=== PATIENT | female | born 1995 | race Caucasian/White ===

== ENCOUNTER → 2019-11-07 | Outpatient (CLI) | payer BC ==
--- NOTE | 2019-11-07 10:25 | Diagnostic Imaging Report ---
PROCEDURE: US OB SINGLE FETUS <14 WKS. TECHNIQUE: Multiple real-time grayscale images were obtained over the gravid uterus in various projections. INDICATION: dating. There is an intrauterine gestational sac containing a pole. measurements are consistent with approximately 9 weeks 6 days gestational age. heart rate was recorded at 179 bpm. No kwadwo-gestational sac hemorrhage is detected. Adnexal evaluation demonstrates left ovary to be unremarkable. Right ovary was not visualized due to bowel gas. There is no free fluid or adnexal mass. IMPRESSION: Single live IUP 9 weeks 6 days gestational age. Estimated date of confinement sonograph is 06/05/2020. Dictated by: Dictated on workstation # [id number]
== END ==
LOC: RAD 09:19
PROVIDERS: ATTEND Family Medicine
DX: Z36.89 Encounter for other specified antenatal screening (principal); Z3A.09 9 weeks gestation of pregnancy
CPT/HCPCS: 76801

== ENCOUNTER → 2020-01-11 | Outpatient (CLI) | payer BC ==
--- NOTE | 2020-01-11 17:10 | Diagnostic Imaging Report ---
INDICATION: Anatomic survey. TECHNIQUE: Multiple real-time grayscale images were obtained over the gravid uterus. COMPARISON: November 07, 2019. FINDINGS: A single live intrauterine gestation is identified in a cephalic presentation. The placenta is anteriorly located without evidence of placenta previa. Amniotic fluid is subjectively within normal limits. cardiac motion is documented at 147 bpm. biometrics are symmetric. They are consistent with estimated gestational age of 18 weeks and 6 days. Therefore, there is an estimated due date based upon this examination of June 07, 2020. Findings are consistent with clinical dating and there has been adequate interval growth since the prior examination. Intracranial contents and spine are unremarkable. The four-chamber heart, kidneys, urinary bladder, and three-vessel cord are unremarkable. Maternal ovaries were unable to be visualized secondary to the gravid uterus. Biometrical measurements are as follows: Biparietal 4.27 cm, age 19 weeks 0 days. Head circumference 15.76 cm, age 18 weeks 5 days. Abdominal circumference 12.37 cm, age 18 weeks 1 days. Femur length 2.97 cm, age 19 weeks 2 days. Sonographic estimate age: 18 weeks 6 days. Sonographic estimated date of delivery: 06/07/20. Estimated Weight: 247 gm (+/- 36 gm). LMP percentile: 17%. heart rate: 147 beats per minute. number: 1 of 1. IMPRESSION: Single live intrauterine gestation in a cephalic presentation with an estimated gestational age of 18 weeks and 6 days. Therefore, there is estimated due date based upon this examination of June 07, 2020. Findings are consistent with clinical dating and there has been adequate interval growth since the prior examination. No acute abnormality or anomaly identified on this exam. Dictated by: Dictated on workstation # [id number]
== END ==
LOC: RAD 14:13
PROVIDERS: ATTEND Family Medicine
DX: Z36.89 Encounter for other specified antenatal screening (principal); Z3A.18 18 weeks gestation of pregnancy
CPT/HCPCS: 76805

== ENCOUNTER 2020-06-04 18:56 | Inpatient (IN) | payer BC ==
--- NOTE | 2020-06-03 19:05 | NUR ---
SRINATH ARGUELLO presented to unit via from ED, accompanied by , INDUCTION. SRINATH GLASS weighed, gowned, voided, and to bed. EFHM and TOCO applied, VS taken. SRINATH GLASS oriented to bed controls, call light, TV, heat, and A/C controls.
[2020-06-04] VITALS (7 sets, daily range): BP systolic 120–132; BP diastolic 60–80
[~2020-06-04] VITALS: Ht 154.9 cm; Wt 91.2 kg
[2020-06-04] MEDS ORDERED: MINERAL OIL CONCENTRATE 99.9% 15 ML UDC TOP PRN (19:30)
[2020-06-04] MEDS ORDERED: MISOPROSTOL 100 MCG (CYTOTEC) TAB ONE (19:32)
[2020-06-04] MEDS ORDERED: D5 LR IV SOLUTION 1,000 ML IV ONE (19:33)
[2020-06-04] MEDS: D5 LR IV SOLUTION 1,000 ML IV SCH (19:45)
[2020-06-04] MEDS ORDERED: MISOPROSTOL 100 MCG (CYTOTEC) TAB PO ONE (19:56)
[2020-06-04 20:03] LABS: BASOPHILS % (AUTO) 0 % (0-10); EOSINOPHILS % (AUTO) 0 % (0-10); HEMATOCRIT 31 % (35-52); HEMOGLOBIN 10.5 G/DL (11.5-16.0); LYMPHOCYTES # (AUTO) 1.5 X 10^3 (1.0-4.0); LYMPHOCYTES % (AUTO) 19 % (12-44); MEAN CORPUSCULAR HEMOGLOBIN 26 PG (25-34); MEAN CORPUSCULAR HGB CONC 33 G/DL (32-36); MEAN CORPUSCULAR VOLUME 79 FL (80-99); MEAN PLATELET VOLUME 11.2 FL (7.4-10.4); MONOCYTES # (AUTO) 0.7 X 10^3 (0.0-1.0); MONOCYTES % (AUTO) 8 % (0-12); NEUTROPHILS # (AUTO) 5.9 X 10^3 (1.8-7.8); NEUTROPHILS % (AUTO) 73 % (42-75); PLATELET COUNT 330 10^3/uL (130-400); RED CELL DISTRIBUTION WIDTH 14.6 % (10.0-14.5)
[2020-06-04 20:14] LABS: BILIRUBIN,URINE NEGATIVE (NEGATIVE); CLARITY,URINE CLEAR; COLOR,URINE YELLOW; GLUCOSE, URINE (UA) NEGATIVE (NEGATIVE); KETONES,URINE NEGATIVE (NEGATIVE); LEUKOCYTE ESTERASE ,URINE NEGATIVE (NEGATIVE); NITRITE,URINE NEGATIVE (NEGATIVE); PROTEIN,URINE 1+ (NEGATIVE)
[2020-06-04 20:21] LABS: BACTERIA,URINE TRACE /HPF; WBC,URINE 0-2 /HPF
[2020-06-04] MEDS: LACTATED RINGERS 1,000 ML IV SCH (21:10)
[2020-06-04] MEDS ORDERED: CATHETER FLUSH 10 ML SYR IV SCH (22:00)
[2020-06-04] MEDS ORDERED: ZOLPIDEM 5 MG (AMBIEN) TAB PO PRN (22:15)
[2020-06-04] MEDS ORDERED: ACETAMINOPHEN 500 MG TAB (TYLENOL) PO PRN (22:15)
[2020-06-05] VITALS (67 sets, daily range): BP systolic 98–147; BP diastolic 33–102
[2020-06-05] MEDS: MISOPROSTOL 100 MCG (CYTOTEC) TAB PO SCH ×2 (00:15→04:36)
[2020-06-05] MEDS: D5 LR IV SOLUTION 1,000 ML IV SCH ×3 (03:00→18:28)
[2020-06-05] MEDS ORDERED: BUTORPHANOL INJ 2 MG/ML (STADOL) VIAL ONE (04:28)
[2020-06-05] MEDS ORDERED: BUTORPHANOL INJ 2 MG/ML (STADOL) VIAL IV ONE (04:36)
[2020-06-05] MEDS ORDERED: PREN-142 PO (05:01)
[2020-06-05] MEDS ORDERED: OMEP20TA33 PO (05:01)
--- NOTE | 2020-06-05 06:32 | History & Physical-OB ---
OB - Chief Complaint & HPI Date/Time Date of Admission: Date of Admission: Jun 04, 2020 at 18:56 Date seen by a Provider: Jun 05, 2020 Time Seen by a Provider: 06:30 Chief Complaint/History OB-Reason for Admission/Chief: Induction of Labor Hx : 1 Hx Para: 0 Expected Date of Delivery: Jun 05, 2020 Gestational Age in Weeks: 39 Gestational Age in Days: 6 Admission Nurse Assessment Rev: Yes History of Labs GBS negative Allergies and Home Medications Allergies Coded Allergies: No Known Drug Allergies (Unverified , 06/24/12) Home Medications Omeprazole Magnesium 20 Mg Tablet.dr, 20 MG PO DAILY, (Reported) Vit No.124/Iron/FA 1 Each Tablet, 1 EACH PO DAILY, (Reported) Patient Home Medication List Home Medication List Reviewed: Yes OB - History Hx of Present Care: Yes Ultrasounds: Normal mid trimester US Obstetrical Complications: None Medical Complications: None Delivery History Adverse Rxn to Tranfusion: No Patient Past Medical History No chronic medical problems Social History/Family History Recent Infectious Disease Expo: No Alcohol Use: Denies Use Recreational Drug Use: No Immunizations Hepatitis A: No Hepatitis B: No OB - Admission Exam Physical Exam Vitals: Vital Signs 06/04/20 06/05/20 19:45 03:15 Temp 37.0 Pulse 80 Resp 18 B/P (MAP) 132/65 (87) Pulse Ox 97 O2 Delivery Room Air HEENT: Moist Membranes Heart: Rhythm Normal Lungs: Clear Abdomen: Gravid Reflexes: Normal Cervical Dilatation: 1cm Effacement: 50% Station: -3 Membranes: Intact Heart Rate: 140's Accelerations: Accelerations Present Decelerations: No Decelerations Short Term Variability: Present Braid Maker Variability: Average (6-25) Contractions on Admission: None Calderón Scoring Tool (Modified) Dilation (cm): 1-2cm (1) Effacement (%): 31-51% (1) Descent/Station: -3 (0) Cervix Consistency: Medium(1) Cervix Position: Middle/Mid-Position (1) Calderón Score: 4 Labs Laboratory Tests Test 06/04/20 19:10 06/04/20 19:40 Range/Units Urine Color YELLOW Urine Clarity CLEAR Urine pH 7.0 5-9 Urine Specific [place] 1.020 1.016-1.022 Urine Protein 49 H 6-12 MG/DL Urine Glucose (UA) NEGATIVE NEGATIVE Urine Ketones NEGATIVE NEGATIVE Urine Nitrite NEGATIVE NEGATIVE Urine Bilirubin NEGATIVE NEGATIVE Urine Urobilinogen 0.2 < = 1.0 MG/DL Urine Leukocyte Esterase NEGATIVE NEGATIVE Urine RBC (Auto) NEGATIVE NEGATIVE Urine RBC NONE /HPF Urine WBC 0-2 /HPF Urine Squamous Epithelial Cells 5-10 /HPF Urine Crystals NONE /LPF Urine Bacteria TRACE /HPF Urine Casts NONE /LPF Urine Mucus SMALL H /LPF Urine Culture Indicated NO Urine Creatinine 230 H 30-125 MG/DL Urine Protein/Creatinine Ratio 0.21 White Blood Count 8.0 4.3-11.0 10^3/uL Red Blood Count 3.97 L 4.35-5.85 10^6/uL Hemoglobin 10.5 L 11.5-16.0 G/DL Hematocrit 31 L 35-52 % Mean Corpuscular Volume 79 L 80-99 FL Mean Corpuscular Hemoglobin 26 25-34 PG Mean Corpuscular Hemoglobin Concent 33 32-36 G/DL Red Cell Distribution Width 14.6 H 10.0-14.5 % Platelet Count 330 130-400 10^3/uL Mean Platelet Volume 11.2 H 7.4-10.4 FL Neutrophils (%) (Auto) 73 42-75 % Lymphocytes (%) (Auto) 19 12-44 % Monocytes (%) (Auto) 8 0-12 % Eosinophils (%) (Auto) 0 0-10 % Basophils (%) (Auto) 0 0-10 % Neutrophils # (Auto) 5.9 1.8-7.8 X 10^3 Lymphocytes # (Auto) 1.5 1.0-4.0 X 10^3 Monocytes # (Auto) 0.7 0.0-1.0 X 10^3 Eosinophils # (Auto) 0.0 0.0-0.3 10^3/uL Basophils # (Auto) 0.0 0.0-0.1 10^3/uL OB - Assessment/Plan/Diagnosis Assessment Assessment: induction of labor, other Admission Dx 1. IUP at 40 weeks Admission Status: Inpatient Order (span 2 midnights) Reason for Inpatient Admission: L&D Plan Plan: Induction Induction Method: per Misoprostol Protocol Other Plan -pitocin augmentation -epidural desired -urine protein/cr ratio checked due to proteinuria. DAMARIS REYES MD Jun 05, 2020 06:32
[2020-06-05] MEDS ORDERED: OXYTOCIN PRE-MIX DRIP 500 ML IV SCH ×2 (06:42→15:31)
[2020-06-05] MEDS: LACTATED RINGERS 1,000 ML IV SCH (06:55)
[2020-06-05] MEDS ORDERED: fentaNYL 2 mcg/ml BUPIVA 0.125 100 ML ONE (07:22)
--- NOTE | 2020-06-05 07:23 | NUR ---
anesthesia called and notified of epidural request
[2020-06-05] MEDS ORDERED: fentaNYL INJECTION 100 MCG/2 ML AMP ONE (07:39)
[2020-06-05] MEDS ORDERED: LIDOCAINE PF 2% 5 ML (XYLOCAINE) VIAL ONE ×2 (07:44→13:21)
[2020-06-05] MEDS ORDERED: BUPIVACAINE SPINAL 0.75% (SENSORCAINE) 2 ML AMP ONE ×2 (07:44→07:45)
[2020-06-05] MEDS ORDERED: BUPIVACAINE 0.5% 30 ML (SENSORCAINE) VIAL ONE ×2 (07:45→13:21)
[2020-06-05] MEDS ORDERED: BUPIVACAINE 0.25% 30 ML (SENSORCAINE) VIAL ONE (07:45)
[2020-06-05] MEDS ORDERED: LACTATED RINGERS 1,000 ML IV SCH (08:18)
[2020-06-05] MEDS ORDERED: ONDANSETRON 4 MG/2 ML (SDV) Z0FRAN IV PRN (08:30)
[2020-06-05] MEDS ORDERED: diphenhydrAMINE 50 MG/ML INJ (BENADRYL) IV PRN (08:30)
[2020-06-05] MEDS ORDERED: NALOXONE 0.4 MG/ML 1 ML (NARCAN) VIAL IV PRN (08:30)
[2020-06-05] MEDS ORDERED: EPIDURAL (fentaNYL 2 MCG/ML BUPIVA 0.125%)100 ML BAG EPI PRN (08:30)
[2020-06-05] MEDS ORDERED: TERBUTALINE INJ 1 MG/ML (BRETHINE) AMP ONE (12:46)
[2020-06-05] MEDS ORDERED: CITRIC ACID/SOB CIT (BICITRA) 30 ML UDC ONE (12:53)
[2020-06-05] MEDS ORDERED: FAMOTIDINE 20MG/2ML IV (PEPCID) ONE (12:53)
[2020-06-05] MEDS ORDERED: METOCLOPRAMIDE INJ 10 MG/2 ML (REGLAN) ONE (12:53)
[2020-06-05] MEDS ORDERED: OXYTOCIN PRE-MIX DRIP 0 ML IV ONE (13:11)
[2020-06-05] MEDS ORDERED: ceFAZolin INJECTION 1,000 MG ONE (13:16)
[2020-06-05] MEDS ORDERED: ceFAZolin INJECTION 2,000 MG ONE (13:46)
[2020-06-05] MEDS ORDERED: morphine INJ 10 MG/ML 1ML (SYR OR VIAL) IVP ONE (14:00)
--- NOTE | 2020-06-05 14:44 | NUR ---
Pt to [facility] room 307 via bed accompanied by PACU staff. Report rec'd bedside from Edwin Farmer RN. VS taken, assessment completed. IV pitocin to pump. SCD's on and activated. FFU/2, light rubra lochia noted, no clots expressed. Fresh ice water and ice chips provided per pt request. No s/s of distress noted. No further needs voiced
[2020-06-05] MEDS ORDERED: KETOROLAC 30 MG/ML VIAL ONE (15:41)
[2020-06-05] MEDS ORDERED: MEASLES,MUMPS,RUBELLA 1 EA INJ SC SCH (15:45)
[2020-06-05] MEDS ORDERED: TETANUS,DIPTH,PERTUSS P/F (BOOSTRIX) 0.5 ML VIAL IM SCH (15:45)
[2020-06-05] MEDS: KETOROLAC 30 MG/ML VIAL IV SCH ×2 (15:46→22:17)
--- NOTE | 2020-06-05 18:30 | NUR ---
assisted pt up to side of bed, pericare performed, pad and panty applied. pt ambulates self to bathroom, +void, pericare performed. pt assisted back to bed w/o incident.
--- NOTE | 2020-06-05 19:48 | NUR ---
INITIAL SHIFT ASSESSMENT DONE. VSS. PT DENIES ANY C/O'S AT THIS TIME. AT SIDE AND SLEEPING IN OPEN CRIB.
--- NOTE | 2020-06-05 20:40 | NUR ---
PT ASSISTED UP TO BATHROOM. VOIDING WITHOUT DIFFICULTY. PT DENIES ANY NEEDS AT THIS TIME.
--- NOTE | 2020-06-05 21:15 | NUR ---
IV TO SALINE LOCK. PT UP TO SHOWER AT THIS TIME PER REQUEST.
[2020-06-05] MEDS ORDERED: CATHETER FLUSH 10 ML SYR IV SCH (22:00)
--- NOTE | 2020-06-05 22:15 | NUR ---
PT RESTING OFF ET ON. SCHEDULED TORADOL ADMINISTERED WELL COLACE. PT DENIES ANY NEEDS.
[2020-06-05] MEDS: DOCUSATE SODIUM 100 MG (COLACE) CAP PO SCH (22:17)
[2020-06-05] MEDS: oxyCODONE/APAP 10/325MG (PERCOCET 10) TABLET PO PRN (23:30)
--- NOTE | 2020-06-05 23:30 | NUR ---
PT EXHAUSTED. ASLEEP ON COUCH. INFANT TO NSY SO PT MAY REST. PT DENIES ANY NEEDS AT THIS TIME.
[2020-06-06 02:10] VITALS: BP 138/80
--- NOTE | 2020-06-06 02:20 | NUR ---
PT UP TO BATHROOM AT THIS TIME. VOIDED LARGE AMT. LOCHIA LIGHT. PT PASSING FLATUS WELL.
--- NOTE | 2020-06-06 03:30 | NUR ---
PT SITTING UP IN BED AND HAS BEEN FEEDING INFANT. DENIES ANY NEEDS OR C/O'S.
[2020-06-06] MEDS: KETOROLAC 30 MG/ML VIAL IV SCH (04:17)
[2020-06-06 04:58] LABS: BASOPHILS % (AUTO) 0 % (0-10); EOSINOPHILS % (AUTO) 0 % (0-10); HEMATOCRIT 25 % (35-52); HEMOGLOBIN 8.1 G/DL (11.5-16.0); LYMPHOCYTES # (AUTO) 1.4 X 10^3 (1.0-4.0); LYMPHOCYTES % (AUTO) 13 % (12-44); MEAN CORPUSCULAR HEMOGLOBIN 26 PG (25-34); MEAN CORPUSCULAR HGB CONC 32 G/DL (32-36); MEAN CORPUSCULAR VOLUME 81 FL (80-99); MEAN PLATELET VOLUME 10.9 FL (7.4-10.4); MONOCYTES # (AUTO) 0.8 X 10^3 (0.0-1.0); MONOCYTES % (AUTO) 8 % (0-12); NEUTROPHILS # (AUTO) 8.3 X 10^3 (1.8-7.8); NEUTROPHILS % (AUTO) 79 % (42-75); PLATELET COUNT 257 10^3/uL (130-400); RED CELL DISTRIBUTION WIDTH 14.8 % (10.0-14.5); WHITE BLOOD COUNT 10.4 10^3/uL (4.3-11.0)
--- NOTE | 2020-06-06 05:05 | NUR ---
DIAPER CHANGE DEMONSTRATION GIVEN.
[2020-06-06 05:30] VITALS: BP 130/81
[2020-06-06] MEDS: oxyCODONE/APAP 10/325MG (PERCOCET 10) TABLET PO PRN ×2 (07:15→16:47)
--- NOTE | 2020-06-06 08:00 | NUR ---
A.M. ASSESSMENT COMPLETED. VSS. ENCOURAGED I.S. Q 2 HOURS W/A AND AMBULATION IN HALLWAY X4 TODAY. CARING FOR INFANT IN ROOM. S.O. AT BEDSIDE.
[2020-06-06 08:20] VITALS: BP 131/66
[2020-06-06] MEDS: DOCUSATE SODIUM 100 MG (COLACE) CAP PO SCH ×2 (08:57→19:53)
--- NOTE | 2020-06-06 09:50 | Progress Note ---
Standard Progress Note Progress Notes/Assess & Plan Date Seen by a Provider: Jun 06, 2020 Time Seen by a Provider: 09:49 Progress/Assessment & Plan This patient is without complaint. She is ambulating, voiding, tolerating oral intake well has good pain control. Vital Signs 06/05/20 06/06/20 14:20 05:30 Temp 36.9 Pulse 94 Resp 18 B/P (MAP) 130/81 (97) Pulse Ox 100 O2 Delivery Room Air O2 Flow Rate 2 Vital signs are stable. Patient is afebrile. The abdomen is benign. Fundus is firm below the umbilicus and nontender. The surgical incision is clean dry and intact. Extreme show no clubbing cyanosis. There is no Homans sign. There is some pretibial pitting edema that is normal. Assessment and plan postoperative day number 1 status post primary delivery doing well. Plan is routine convalescence care today and consider for discharge home tomorrow Final Diagnosis Primary delivery VERONICA ZEPEDA MD Jun 06, 2020 09:50
[2020-06-06] MEDS ORDERED: DCS100C PO (09:52)
[2020-06-06] MEDS ORDERED: IBUP-1780 PO (09:52)
[2020-06-06] MEDS ORDERED: OXYC1TAB12 PO (09:52)
--- NOTE | 2020-06-06 09:53 | Discharge Inst-Surgical ---
Discharge Inst-Surgical Depart Medication/Instructions New, Converted or Re-Newed RX: RX on Chart Consults/Follow Up Patient Instructions: As directed Orders & Referrals Follow Up Appt: RTC 1 week for incision check with Dr. Schmidt for incision check Call to make follow up appt. for patient in [address] Muir for exam. Wound Care: Remove david, apply benzoin and steri strips. Activity Per routine post instructions. Please call in RX to patient pharmacy. Diet as tolerated Patient may shower or tub bathe as desired. Continue home meds Activity Activity as Tolerated: No Diet Discharge Diet: No Restrictions VERONICA SCHMIDT MD Jun 06, 2020 09:53
[2020-06-06] MEDS ORDERED: IBUPROFEN 600 MG (MOTRIN) TAB PO ONE (09:58)
--- NOTE | 2020-06-06 10:00 | NUR ---
CONTINUES TO DO WELL. CARING FOR INFANT IN ROOM.
[2020-06-06] MEDS: IBUPROFEN 800 MG (MOTRIN) TAB PO SCH ×2 (10:11→18:07)
--- NOTE | 2020-06-06 13:00 | NUR ---
EATING STORK MEAL.
[2020-06-06 13:15] VITALS: BP 133/68
--- NOTE | 2020-06-06 13:19 | Anesthesia-Regional Post-Op ---
Regional Patient Condition Mental Status: Alert, Oriented x3 Circulation: Same as Pre-Op Headache: Absent Sensation: Full Recovery Motor Block: Absent Post Op Complications Complications None Follow Up Care/Instructions Patient Instructions None needed. Anesthesia/Patient Condition Patient is doing well, no complaints, stable vital signs, no apparent adverse anesthesia problems. EMILY THOMAS DO Jun 06, 2020 13:19
[2020-06-06] MEDS ORDERED: SIMETHICONE 80 MG (MYLICON) CHEW PO PRN (13:45)
--- NOTE | 2020-06-06 14:00 | NUR ---
PT HAS AMBULATED IN THE [facility] TODAY. MOVES WELL. PASSING FLATUS BUT C/O GAS PAIN.
--- NOTE | 2020-06-06 14:53 | OPERATIVE REPORT ---
DATE OF SERVICE: 06/05/2020 PREOPERATIVE DIAGNOSES: Term in labor with failure to progress and with nonreassuring heart rate pattern. POSTOPERATIVE DIAGNOSES: Term in labor with failure to progress and with nonreassuring heart rate pattern with likely placental abruption. OPERATIVE PROCEDURE: Primary low transverse delivery of a viable male infant with Apgars of 8 and 9 at 1 and 5 minutes respectively, weight of 6 pounds and 8 ounces. time of 13:11 and a cord pH that is pending. NETWORK SECURITY ADMINISTRATOR FOR DELIVERY: Dr. Muir. SPECIALIST EMPLOYEE LABOR RELATIONS FOR DELIVERY: Dr. Muir. OPERATIVE DESCRIPTION: With the patient in the supine position under satisfactory epidural analgesia, the patient was prepped and draped in the usual fashion for abdominal surgery. Osuna catheter was in the urinary bladder already that was left to dependent drainage. A Pfannenstiel incision was made through the skin with scalpel, the patient's abdomen entered in the usual manner. Bladder retractor placed in position. Clean scalpel used to make a 4 cm hysterotomy incision transversely across the lower uterine segment. That was extended bluntly, releasing a small amount of clear fluid. Mercado forceps were applied to facilitate delivery of a vigorous viable male infant. The had stats as noted above. The was bulb suctioned on delivery of the head and again on completion of delivery. The umbilical cord was doubly clamped and cut and the taken to the warmer by Dr. Muir, the community health education coordinator in attendance for delivery. Cord bloods were obtained. Placenta delivered fairly promptly spontaneously Vincent. There was a large amount of blood with some formed clot retroplacental, suspicious for some degree of placental abruption. The placenta was sent to pathology for permanent section. The uterus was exteriorized, interior wiped clean with wet laparotomy sponge. Uterine incision closed with running locked suture of 2-0 Vicryl. Hemostasis was complete. The uterus was returned to the abdominal cavity. All blood clot and debris removed from the abdominal cavity. Sponge and needle counts correct, hemostasis assured. The anterior parietal peritoneum was closed with a running suture of 2-0 Vicryl. Rectus muscles were closed with the same suture. Rectus fascia was closed with 2-0 Vicryl, subcutaneous tissue with 2-0 Vicryl and the skin was stapled. Sponge and needle counts were correct on completion of the procedure. Estimated blood loss was around 600 mL. The patient tolerated the procedure well and was transferred to recovery room in stable condition. The was taken stable to the full-term nursery under the care of Dr. Muir. Job ID: [id number] DocumentID: [id number] Dictated Date: 06/06/2020 10:54:04 Maintainability Engineer Date: 06/06/2020 14:53:06 Dictated By: VERONICA ZEPEDA MD MTDD
--- NOTE | 2020-06-06 16:47 | NUR ---
PERCOCET 1 TAB P.O. FOR C/O ABD PAIN.
[2020-06-06] MEDS ORDERED: IBUPROFEN 800 MG (MOTRIN) TAB PO ONE (17:54)
[2020-06-06 18:10] VITALS: BP 122/59
--- NOTE | 2020-06-06 18:10 | NUR ---
TDAP AND MMR GIVEN.
--- NOTE | 2020-06-06 18:15 | NUR ---
VSS. CONTINUES TO CARE FOR IN ROOM. DOING WELL.
--- NOTE | 2020-06-07 00:03 | NUR ---
Report to justyn HIDALGO
[2020-06-07 00:40] VITALS: BP 133/78
[2020-06-07] MEDS: IBUPROFEN 800 MG (MOTRIN) TAB PO SCH ×2 (02:08→10:03)
[2020-06-07] MEDS: oxyCODONE/APAP 10/325MG (PERCOCET 10) TABLET PO PRN ×2 (04:09→10:03)
--- NOTE | 2020-06-07 04:20 | Progress Note ---
Standard Progress Note Progress Notes/Assess & Plan Date Seen by a Provider: Jun 07, 2020 Time Seen by a Provider: 04:19 Progress/Assessment & Plan This patient is without complaint. She is ambulating, voiding, tolerating oral intake well has good pain control. Vital Signs 06/05/20 06/06/20 14:20 05:30 Temp 36.9 Pulse 94 Resp 18 B/P (MAP) 130/81 (97) Pulse Ox 100 O2 Delivery Room Air O2 Flow Rate 2 Vital signs are stable. Patient is afebrile. The abdomen is benign. Fundus is firm below the umbilicus and nontender. The surgical incision is clean dry and intact. Extreme show no clubbing cyanosis. There is no Homans sign. There is some pretibial pitting edema that is normal. Assessment and plan postoperative day number 1 status post primary delivery doing well. Plan is routine convalescence care today and consider for discharge home tomorrow June 07, 2020 Patient without complaint. She is ablating, voiding, tolerating oral intake well has good pain control. Patient is requesting discharge home. Vital Signs Date Time Temp Pulse Resp B/P (MAP) Pulse Ox O2 Delivery O2 Flow Rate FiO2 06/07/20 00:40 36.9 114 20 133/78 (96) 99 Room Air 06/06/20 18:10 36.8 89 18 122/59 (80) 98 Room Air 06/06/20 13:15 36.7 115 18 133/68 (89) 98 Room Air 06/06/20 08:20 36.6 105 18 131/66 (87) 98 Room Air 06/06/20 05:30 36.9 94 18 130/81 (97) 100 Room Air I & O 06/07/20 07:00 Intake Total 2380 ml Output Total 2200 ml Balance 180 ml Vital signs are stable. Patient is afebrile. Fundus is firm below the umbilicus and nontender. Extremities show no clubbing or cyanosis. There is no Homans sign. Assessment and plan postoperative day number 2 status post primary delivery at 39+ weeks gestation. Plan is for discharge home with follow-up in clinic Final Diagnosis 39 week primary delivery VERONICA ZEPEDA MD Jun 07, 2020 04:20
[2020-06-07 06:13] VITALS: BP 141/65
--- NOTE | 2020-06-07 08:03 | Anesthesia-Regional Post-Op ---
Regional Patient Condition Mental Status: Alert, Oriented x3 Circulation: Same as Pre-Op Headache: Absent Sensation: Full Recovery Motor Block: Absent Post Op Complications Complications None Follow Up Care/Instructions Patient Instructions None needed. Anesthesia/Patient Condition Patient is doing well, no complaints, stable vital signs, no apparent adverse anesthesia problems. No complications reported per nursing. DREW DORADO CRNA Jun 07, 2020 08:03
[2020-06-07 08:20] VITALS: BP 130/66
[2020-06-07] MEDS: DOCUSATE SODIUM 100 MG (COLACE) CAP PO SCH (10:02)
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
[2020-06-07 12:50] VITALS: BP 130/66
--- NOTE | 2020-06-07 13:00 | NUR ---
SRINATH GLASS demonstrates understanding of discharge instructions and accurately returns instructions upon questioning. Copy of Post-Discharge Instructions and Medication Discharge Instructions given to patient. SRINATH GLASS is to manage continuing needs after discharge. Patients belongings returned to pt. Skin dry and intact; no breakdown noted. Patient discharged from 3307 on 06/07/20 at 1300. SRINATH GLASS left floor via ambulation, accompanied by and women services.
== END 2020-06-07 13:00 | disposition home or self-care (01) | DRG 786 ==
LOC: LDRP 18:56
PROVIDERS: ADMIT Family Medicine; ATTEND Family Medicine
PROC: 3E033VJ Introduction of Other Hormone into Peripheral Vein, Percutaneous Approach (ICD-10-PCS; 2020-06-04)
PROC: 10D00Z1 Extraction of Products of Conception, Low, Open Approach (ICD-10-PCS; principal; 2020-06-06)
DX: O62.2 Other uterine inertia (principal); O45.8X3 Other premature separation of placenta, third trimester; Z3A.39 39 weeks gestation of pregnancy; Z37.0 Single live birth; Z23 Encounter for immunization
CPT/HCPCS: 36415; 81000; 82570; 84156; 85025; 86850; 86900; 86901; 90707; 90715; 94664